=== PATIENT | male | born 1940 | race Caucasian/White ===

== ENCOUNTER → 2016-11-18 | Day surgery (SDC) | payer MEDICARE ==
[~2016-11-18] MED LIST: ATROPINE SULFATE 1% OPHT SOLN 2 ML BTL ONE; DEXAMETHASONE SOD PHOS 4 MG/ML VIAL ONE; EPINEPHrine HCL (1:1000) 1 MG/ML VIAL ONE; FLURBIPROFEN 0.03% OPHT SOLN 2.5 ML BTL ONE; HYALURONIDASE/LIDOCAINE/BUPIVACAINE 11 ML SYR TL ONE; LACTATED RINGER'S 1000 ML INJ 1,000 ML ONE; NEOMYCIN/POLYMYXIN/DEXAMETHASONE OPTH OINT 3.5 GM TUBE ONE; PHENYLEPHRINE HCL 2.5 % OPTH SOLN 15 ML BTL ONE; PROPOFOL 200 MG/20 ML AMP IV ONE; SODIUM CHLORIDE 0.9% INJ 10 ML ONE; TETRACAINE 0.5% OPTH SOLN 15 ML BTL ONE; TROPICAMIDE 1% OPHT SOLN 15 ML BTL ONE; ceFAZolin INJ 1,000 MG VIAL ONE
--- NOTE | 2016-11-24 09:46 | MP ---
cc: JORGE LAFLEUR MD DATE OF 1940 DATE OF SURGERY 11/18/2016 PREOPERATIVE DIAGNOSIS Epiretinal membrane right eye. POSTOPERATIVE DIAGNOSIS Epiretinal membrane right eye. OPERATION Pars plana vitrectomy, membrane peeling right eye. ANESTHESIA MAC. SURGEON Jorge Lafleur MD. COMPLICATIONS None. PROCEDURE After informed consent was obtained, the patient was brought to the operating room and placed under brief anesthesia with propofol. 10 cc of a 50/50 mixture of 0.75% Marcaine and 2% lidocaine was placed in a modified Van Lint lid block as well as a retrobulbar injection. The patient was then prepared and draped in the usual sterile fashion. A wire lid speculum was placed in the patient's right eye. A 270 degree conjunctival peritomy was then performed using the 0.12 forceps and Lisette scissors. Excellent hemostasis was obtained with the bipolar cautery. Scleral allen were then made 3 mm posterior to the cornea in scleral limbus, lower temporal, supratemporal and supranasal quadrants. A 6-0 Vicryl mattress suture was placed around the lower temporal marnie. A 20 gauge MVR blade was then used to penetrate the vitreous cavity through this site. A 4 mm infusion cannula was then temporarily sewn in place and was well-visualized to be in the vitreous cavity through the pupil. Two superior sclerotomy sites were then each made with a 20 gauge MVR blade. Core vitrectomy was then performed. 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 The vitrectomy was carried out as far as possible of the vitreous space especially in and around the retinal breaks inferiorly. A complete air-fluid exchange was then performed and the retinal flattened nicely. An endolaser was placed to treat the retinal breaks on the surface of the scleral buckle that had been previously placed. The air was then exchanged for 16% C3F8. The two superior sclerotomy sites were then each closed with interrupted 6-0 Vicryl mattress suture. The infusion cannula was removed and mattress sutures tied up permanently. The conjunctiva was re-apposed using two interrupted 7-0 Vicryl sutures. Subconjunctival injections of dexamethasone and Ancef were placed. An Atropine drop, Maxitrol ointment and a patch and shield were then applied. The patient tolerated the procedure well. He will follow up tomorrow in our [place] office. MD EFREN Case/KK /9:25 AM /9:43 AM
== END | disposition home or self-care (01) ==
LOC: ESDC 12:34
PROVIDERS: ATTEND Ophthalmology Retina Specialist
DX: H35.371 Puckering of macula, right eye (principal)
CPT/HCPCS: 00145; 67042; J0171; J0690; J1100; J7120